=== PATIENT | female | born 1975 | race Hispanic/Latino ===

== ENCOUNTER 2016-07-27 06:00 | Day surgery (SDC) | payer OTHER ==
[~2016-07-27 06:00] MED LIST: MARCAINE-EPI 0.5%-1:200,000 INFILTRATI ONE; XYLOCAINE 2% INFILTRATI ONE
[2016-07-27] MEDS ORDERED: NACL BACTERIOSTATIC INFILTRATI ONE (06:54)
[2016-07-27] MEDS ORDERED: VERSED ONE (07:02)
[2016-07-27] MEDS ORDERED: DIPRIVAN 10 MG/ML IV ONE (07:02)
[2016-07-27] MEDS ORDERED: SUBLIMAZE ONE ×2 (07:02→08:34)
--- NOTE | 2016-07-27 07:05 | Anesthesia Day of Surgery ---
Anesthesia Day of Surgery - Day of Surgery Patient Examined: Yes Patient H&P Reviewed: Yes Patient is NPO: Yes
--- NOTE | 2016-07-27 07:05 | Anesthesia Consultation ---
Anesthesia Consult and Med Hx Date of service: 07/27/16 - Airway Anesthetic Teeth Evaluation: Good ROM Head & Neck: Adequate Mental/Hyoid Distance: Adequate Mallampati Class: Class I - Pulmonary Exam CTA: Yes - Cardiac Exam Cardiac Exam: RRR - Pre-Operative Health Status ASA Pre-Surgery Classification: ASA2 Proposed Anesthetic Plan: General - Pulmonary Hx Smoking: Yes (quit x 2 months) - Central Nervous System Hx Psychiatric Problems: Yes (depression) - Other Systems Hx Obesity: Yes
[2016-07-27 07:20] LABS: Basophils % (Auto) 2.5 % (0.0-1.8); Eosinophils % (Auto) 2.9 % (0.0-4.3); Hematocrit 42.8 % (30.3-42.9); Hemoglobin 14.2 gm/dl (10.1-14.3); Mean Corpuscular HGB Conc 33 % (30-34); Mean Corpuscular Hemoglobin 29 pg (28-32); Mean Corpuscular Volume 86 fl (79-97); Platelet Count 264 K/mm3 (140-440); Red Blood Count 4.97 M/mm3 (3.65-5.03); Red Cell Distribution Width 13.6 % (13.2-15.2)
[2016-07-27] MEDS ORDERED: ANCEF/STERILE WATER 2 GM/20 ML IV NR (07:24)
[2016-07-27] MEDS ORDERED: XYLOCAINE 1% 20 mL ONE (07:26)
[2016-07-27] MEDS ORDERED: MARCAINE-EPI 0.5%-1:200,000 INFILTRATI ONE (07:26)
[2016-07-27] MEDS ORDERED: ZOFRAN IV PRN (07:30)
[2016-07-27] MEDS ORDERED: NORCO 5/325 PO PRN (07:30)
[2016-07-27] MEDS ORDERED: PEPCID IV NR (07:30)
[2016-07-27 07:37] LABS: Alanine Aminotransferase 12 units/L (7-56); Albumin 4.1 g/dL (3.9-5); Albumin/Globulin Ratio 1.6 %; Alkaline Phosphatase 63 units/L (35-129); Anion Gap 17 mmol/L; BUN/Creatinine Ratio 12.85; Blood Urea Nitrogen 9 mg/dL (7-17); Carbon Dioxide 24 mmol/L (22-30); Chloride 100.6 mmol/L (98-107); Glucose 101 mg/dL (65-100); Potassium 4.2 mmol/L (3.6-5.0); Sodium 137 mmol/L (137-145); Total Protein 6.7 g/dL (6.3-8.2)
[2016-07-27] MEDS ORDERED: VERSED IV NR (08:00)
[2016-07-27] MEDS ORDERED: LACTATED RINGERS 1,000 ML IV SCH (08:00)
[2016-07-27] MEDS ORDERED: DILAUDID IV PRN (08:00)
[2016-07-27] MEDS ORDERED: DECADRON ONE (08:21)
[2016-07-27] MEDS ORDERED: LACTATED RINGERS 1,000 ML ONE (08:21)
[2016-07-27] MEDS ORDERED: ZOFRAN ONE (08:21)
[2016-07-27] MEDS ORDERED: ROBINUL ONE (08:21)
[2016-07-27] MEDS ORDERED: ZEMURON IV ONE (08:21)
[2016-07-27] MEDS ORDERED: XYLOCAINE MPF 2% ONE (08:21)
[2016-07-27] MEDS ORDERED: QUELICIN ONE (08:21)
[2016-07-27] MEDS ORDERED: NEOSTIGMINE ONE (09:06)
--- NOTE | 2016-07-27 09:16 | Discharge Summary ---
Providers - Providers Date of discharge: 07/27/16 Attending physician: BULMARO BOLES Hospitalization Reason for admission: outpatient Lap band removal Condition: Stable Procedures: Laparoscopic gastric band removal Disposition: DISCHARGED TO HOME OR SELFCARE Core Measure Documentation - Palliative Care Palliative Care/ Comfort Measures: Not Applicable - Core Measures Any of the following diagnoses?: none Exam - Physical Exam Narrative exam: NAD VSS Lungs CTAB Heart RRR Abd Soft, NT, ND. Wounds with dermabond dressing Neuro AAOx3 - Constitutional Vitals: Temp Pulse Resp BP Pulse Ox 98.7 F 82 20 113/68 96 07/27/16 07:14 07/27/16 07:14 07/27/16 07:14 07/27/16 07:14 07/27/16 07:14 Plan Activity: advance as tolerated Diet: low carbohydrate Wound: keep clean and dry Special Instructions: no heavy lifting
--- NOTE | 2016-07-27 09:23 | Post Anesthesia Evaluation ---
- Post Anesthesia Evaluation Patient Participated: Yes Airway Patent: Yes Stable Respiratory Function: Yes Nausea/Vomiting: No Temp > 96.8F: Yes Pain Manageable: Yes Adequeate Hydration: Yes Anesthesia Complications: No Block Receding Appropriately: Not Applicable Patient on Ventilator: No
[2016-07-27 10:08] VITALS: BP 109/54
[2016-07-27] MEDS ORDERED: FLAGYL 500 MG/100 ML 500 MG/100 ML BAG IV NR (11:15)
--- NOTE | 2016-07-27 11:57 | Operative Report ---
ATTENDING SURGEON: Vipul Cox MD INSTRUMENT SPECIALIST: Matty Pringle MD PREOPERATIVE DIAGNOSIS: Abdominal pain. POSTOPERATIVE DIAGNOSIS: Abdominal pain. OPERATION PERFORMED: Diagnostic laparoscopy and laparoscopic removal of gastric banding. INDICATION FOR PROCEDURE: The patient is a 41-year-old female with history of laparoscopic gastric banding that was seen in the office with chronic abdominal pain. After workup, the recommendation of removing the band was given to the patient and discussed the risks and benefits of the procedure. She decided to consent for it. DESCRIPTION OF PROCEDURE: The patient was brought to the operating room and placed on the operating table in supine position. General endotracheal tube anesthesia was given by the Anesthesia Team. The patient was prepped and draped under standard fashion. Timeout was called, the patient and procedure were correct, so we proceeded to make stab incision in left upper quadrant and using the Veress needle, insufflated up to 18 mmHg. After doing these using the Optiview technique, we accessed 5 mm camera and elect paraumbilical area. No injury was done to any intraabdominal organ. Quick survey of abdominal cavity was done with camera and we visualized the tubing of the lap-band, so we proceeded to insert working trocars. We placed a 5 mm right upper quadrant, a 15 mm right paraumbilical and 5 mm left upper quadrant as well as a 5 mm subxiphoid for the liver retractor. Adhesions were taken down using the LigaSure and then we dissected out the tubing for the lap-band and transecting half. Then we proceeded to retract the liver up and put the patient in reverse Trendelenburg. We dissected adhesions from the band, to the liver, and surrounding tissues using the LigaSure and monopolar cautery. Then, we proceeded to free up the band from surrounding adhesions and removed it out of the placed position. It was removed through the 15 mm camera out of the patient's abdominal cavity. Then, we proceeded to take down the gastric attachments using combination of monopolar energy device and cold scissors. It was done without creating any serosal injury to the stomach. When it was completely freed up, we proceeded to incise the scar on tissue around the cardia of the stomach where the band was placed. After finishing these, quick survey of the abdominal cavity was performed. No bleeding was seen and these finalizing intraabdominal portion of procedure. We removed the 15 mm trocar and the liver retractor and placed the patient in supine position. Back again we using the incision for 15 mm trocar, we extended it and we dissected down to the lap-band port using a combination of electrocautery and cold scissors. We dissected out from the anterior rectus fascia. When it was removed, the remaining tubing came with the port out without any fractured tubing left intraabdominally and then we proceeded to irrigate the wound and closed that wound in layers using 3-0 Vicryl for the subcu tissue and then 4-0 Monocryl running for the subcuticular closure of skin. The 5 mm incisions were closed in one layer using 4-0 Monocryl. Local anesthetic was given to all the incisions. Instrument and lap count was correct x 2. This finalized the procedure for the patient. The patient was extubated and sent to recovery room. JOB# [id number] TIANA/ESTELLA
== END 2016-07-27 06:01 | disposition home or self-care (01) ==
LOC: OR 06:00
PROVIDERS: ATTEND Surgery
DX: K95.09 Other complications of gastric band procedure (principal); F32.9 Major depressive disorder, single episode, unspecified; K21.9 Gastro-esophageal reflux disease without esophagitis; G43.909 Migraine, unspecified, not intractable, without status migrainosus; E66.9 Obesity, unspecified; Z68.38 Body mass index [BMI] 38.0-38.9, adult; Z87.891 Personal history of nicotine dependence; Z98.51 Tubal ligation status; Z98.890 Other specified postprocedural states; Z79.899 Other long term (current) drug therapy; Z83.3 Family history of diabetes mellitus; Z82.49 Family history of ischemic heart disease and other diseases of the circulatory system; Z83.49 Family history of other endocrine, nutritional and metabolic diseases
CPT/HCPCS: 36415; 43774; 80053; 81025; 85025; J0330; J0690; J1100; J2250; J2405; J2704; J2710; J3010; J7120